=== PATIENT | female | born 1980 | race Caucasian/White ===

== ENCOUNTER → 2017-08-17 | Outpatient (CLI) | payer OTHER | LOC: FIMAGING 15:58 | PROVIDERS: ATTEND Surgery | DX: Z53.09 Procedure and treatment not carried out because of other contraindication (principal); N60.21 Fibroadenosis of right breast; N60.22 Fibroadenosis of left breast; Z80.3 Family history of malignant neoplasm of breast; R59.0 Localized enlarged lymph nodes; N60.02 Solitary cyst of left breast ==